=== PATIENT | male | born 1950 | race Caucasian/White ===

== ENCOUNTER 2017-06-11 10:00 | Emergency (ER) | payer MEDICARE, OTHER ==
[~2017-06-11] VITALS: Ht 182.9 cm; Wt 87.1 kg
[~2017-06-11 10:00] MED LIST: ACAR100T1 PO; CAPT25TA10 PO; GLIM2TAB PO; MECL-270 PO; METF1TAB4 PO
[2017-06-11 10:05] VITALS: BP 156/93
--- NOTE | 2017-06-11 10:09 | NUR ---
Patient ambulated to bed 06.
[2017-06-11] MEDS ORDERED: ASPIRIN 325 MG TAB PO ONE (10:10)
--- NOTE | 2017-06-11 10:14 | NUR ---
PT PRESENTS TO ER W/C/O CHEST PAIN SINCE LAST NOC. HX OF HTN, DM, HYPERLIPIDEMIA. . DENIES N/V/D; SKIN IS PINK/WARM/DRY; AAOX4 WITH EVEN AND STEADY GAIT; LUNGS CLEAR BL; HR EVEN AND REGULAR; PT DENIES ANY FEVER, CP, SOB, OR COUGH AT THIS TIME; PATIENT STATES PAIN OF 9/10 AT THIS TIME; PATIENT POSITIONED FOR COMFORT; HOB ELEVATED; BEDRAILS UP X2; BED DOWN. ALL MONITORS IN PLACED; ALL MONITORS IN PLACED;ER MD MADE AWARE OF PT STATUS.
--- NOTE | 2017-06-11 10:15 | NUR ---
Dr. Ross evaluating patient at bedside.
--- NOTE | 2017-06-11 10:17 | NUR ---
XRAY at bedside.
[2017-06-11 10:33] LABS: HEMATOCRIT 41.5 % (36-52); HEMOGLOBIN 13.7 g/dL (12.0-18.0); MEAN CORPUSCULAR HEMOGLOBIN 31 pg (27-31); MEAN CORPUSCULAR HGB CONC 33 g/dL (33-37); MEAN CORPUSCULAR VOLUME 94 fL (80-94); PLATELET COUNT (AUTO) 180 K/uL (140-450); RED BLOOD CELL COUNT(AUTO) 4.43 MIL/uL (4.20-6.10); RED CELL DISTRIBUTION WIDTH 12.3 % (11.6-13.7); WHITE BLOOD COUNT (AUTO) 6.4 K/uL (4.8-10.8)
[2017-06-11 10:45] LABS: ANION GAP 16.2 (8-16); CARBON DIOXIDE 21.2 mmol/L (21-32); CREATININE 1.2 mg/dL (0.7-1.3); POTASSIUM 4.4 mmol/L (3.5-5.1)
[2017-06-11 10:48] LABS: EOSINOPHILS % (MANUAL) 4 % (0-4); LYMPHOCYTES % (MANUAL) 41 % (20-46); MONOCYTES % (MANUAL) 4 % (5-12)
[2017-06-11 10:50] LABS: ALBUMIN 3.9 g/dL (3.4-5.0); TOTAL BILIRUBIN 0.6 mg/dL (0.0-1.0)
--- NOTE | 2017-06-11 10:54 | NUR ---
PT VERBALIZES RELIEF FROM CHEST PAIN FROM 9/10 TO 0/10;NO MOANING/FACIAL GRIMMACING NOTED;ALL MONITORS IN PLACED;WILL CONTINUE TO MONITOR PT.
--- NOTE | 2017-06-11 11:45 | NUR ---
pt lying on bed;daughter at bedside;no pain at this time;vss;will continue to monitor pt.
--- NOTE | 2017-06-11 12:21 | NUR ---
pt resting on bed;no acute distress noted;all monitors in placed;will continue to monitor pt.
[2017-06-11 13:19] VITALS: BP 124/76
--- NOTE | 2017-06-11 13:19 | NUR ---
Patient discharged with v/s stable. Written and verbal after care instructions given and explained. Patient verbalized understanding. Ambulatory with steady gait. All questions addressed prior to discharge. Advised to follow up with PMD.
== END 2017-06-11 13:19 | disposition home or self-care (01) ==
LOC: MED 10:00
DX: R07.89 Other chest pain (principal); E11.9 Type 2 diabetes mellitus without complications; I10 Essential (primary) hypertension; Z79.899 Other long term (current) drug therapy
CPT/HCPCS: 36415; 71010; 80053; 83880; 84484; 85025; 93005; 99285; Q0092

== ENCOUNTER 2019-06-01 11:03 | Emergency (ER) | payer MEDICARE, OTHER ==
[~2019-06-01] VITALS: Ht 188 cm; Wt 75.3 kg
[2019-06-01 11:10] VITALS: BP 149/78
--- NOTE | 2019-06-01 11:22 | NUR ---
68/M BIB DAUGHTER C/O GENERAILIZED WEAKNESS X1 DAY. MIDDLE BACK PAIN AT 8/10, DENIES TRUAMA OR INJURY. SANJANA LEGS & FEET PITTING EDEMA & BURNING SENSATION IN LEGS, AND PT REPORTS BEING SWEATY. SANJANA FEET PEDAL PULSE :FAINT. MEDHX:DM, HTN, GERD. PATIENT POSITIONED FOR COMFORT; SANJANA LEGS ELEVATED; BEDRAILS UP X1; BED DOWN. ER MD MADE AWARE OF PT STATUS.
[2019-06-01] MEDS ORDERED: KETOROLAC 30 MG/ML VIAL IVP ONE (11:40)
--- NOTE | 2019-06-01 11:41 | NUR ---
tech ed teacher at bedside.
[2019-06-01 12:02] LABS: BASOPHILS % (AUTO) 0.7 % (0.0-2.0); EOSINOPHILS # (AUTO) 0.2 K/uL (0-0.4); EOSINOPHILS % (AUTO) 4.9 % (0.0-4.0); HEMATOCRIT 36.5 % (36-52); HEMOGLOBIN 12.5 g/dL (12.0-18.0); LYMPHOCYTES # (AUTO) 1.9 K/uL (2.0-11.5); LYMPHOCYTES % (AUTO) 37.2 % (20.5-51.1); MEAN CORPUSCULAR HEMOGLOBIN 32 pg (27-31); MEAN CORPUSCULAR HGB CONC 34 g/dL (33-37); MONOCYTES # (AUTO) 0.4 K/uL (0.8-1.0); NEUTROPHILS # (AUTO) 2.5 K/uL (1.8-7.7); NEUTROPHILS % (AUTO) 49.2 % (42.2-75.2); PLATELET COUNT (AUTO) 161 K/uL (140-450); RED BLOOD CELL COUNT(AUTO) 3.97 MIL/uL (4.20-6.10); RED CELL DISTRIBUTION WIDTH 13.5 % (11.6-13.7)
[2019-06-01 12:38] LABS: ALBUMIN 3.7 g/dL (3.4-5.0); ANION GAP 13.5 (8-16); CARBON DIOXIDE 24.7 mmol/L (21-32); CREATININE 1.3 mg/dL (0.7-1.3); POTASSIUM 4.2 mmol/L (3.5-5.1); TOTAL BILIRUBIN 0.5 mg/dL (0.0-1.0)
--- NOTE | 2019-06-01 13:09 | NUR ---
Patient taken to CT scan via gurney by [employer].
--- NOTE | 2019-06-01 14:21 | NUR ---
Dr. Reeder re-evaluating patient at bedside.
[2019-06-01 14:39] VITALS: BP 142/77
[2019-06-01 15:05] LABS: CREATINE KINASE MB 2.4 ng/mL (0-3.6)
== END 2019-06-01 14:39 | disposition home or self-care (01) ==
LOC: MED 11:03
DX: M79.605 Pain in left leg (principal); M79.604 Pain in right leg; E11.9 Type 2 diabetes mellitus without complications; I10 Essential (primary) hypertension; Z79.899 Other long term (current) drug therapy
CPT/HCPCS: 36415; 71045; 74176; 80053; 81002; 82550; 82553; 82948; 83690; 83880; 84484; 85025; 93005; 96374; 99284; J1885; Q0092

== ENCOUNTER 2019-06-09 18:31 | Emergency (ER) | payer MEDICARE, OTHER ==
[~2019-06-09] VITALS: Ht 175.3 cm; Wt 87.7 kg
[2019-06-09 18:48] VITALS: BP 118/97
[2019-06-09] MEDS ORDERED: BENA20TA PO (18:59)
[2019-06-09] MEDS ORDERED: NACL 0.9% 1,000 ML IV ONE (19:10)
[2019-06-09] MEDS ORDERED: ASPIRIN 81 MG TAB.CHEW PO ONE (19:10)
--- NOTE | 2019-06-09 19:11 | NUR ---
C/O HEADACHE AND DIZZINESS. NAUSEA 1 HR AGO. CHEST PAIN 2 HOURS AGO SUBSIDED AFTER OMEPRAZOLE. RASH ON CHEST, BACK AND ARMS THAT WAS JUST NOTICED IN ROOM. DIZZINESS WHICH IS WORSE UPON STANDING. MEDHX: DM, HTN, GERD
--- NOTE | 2019-06-09 19:20 | NUR ---
REPORT GIVEN FROM UZIEL LIMA
--- NOTE | 2019-06-09 19:34 | NUR ---
PT C/O OF HEADACHE. PAIN LEVEL 8/10.
[2019-06-09 19:44] LABS: BASOPHILS % (AUTO) 0.5 % (0.0-2.0); EOSINOPHILS # (AUTO) 0.3 K/uL (0-0.4); EOSINOPHILS % (AUTO) 4.7 % (0.0-4.0); HEMATOCRIT 36.6 % (36-52); HEMOGLOBIN 12.6 g/dL (12.0-18.0); LYMPHOCYTES # (AUTO) 2.7 K/uL (2.0-11.5); LYMPHOCYTES % (AUTO) 40.4 % (20.5-51.1); MEAN CORPUSCULAR HEMOGLOBIN 32 pg (27-31); MEAN CORPUSCULAR HGB CONC 35 g/dL (33-37); MEAN CORPUSCULAR VOLUME 91.1 fL (80-94); MONOCYTES # (AUTO) 0.5 K/uL (0.8-1.0); MONOCYTES % (AUTO) 7.4 % (1.7-9.3); NEUTROPHILS # (AUTO) 3.1 K/uL (1.8-7.7); PLATELET COUNT (AUTO) 154 K/uL (140-450); RED BLOOD CELL COUNT(AUTO) 4.02 MIL/uL (4.20-6.10); WHITE BLOOD COUNT (AUTO) 6.7 K/uL (4.8-10.8)
[2019-06-09] MEDS ORDERED: KETOROLAC 30 MG/ML VIAL IVP ONE (19:50)
[2019-06-09 20:00] LABS: ANION GAP 15.6 (8-16); CARBON DIOXIDE 22.6 mmol/L (21-32); CREATININE 1.7 mg/dL (0.7-1.3); POTASSIUM 4.2 mmol/L (3.5-5.1)
[2019-06-09 20:03] LABS: PROTHROMBIN TIME 10.1 secs (10.8-13.4)
[2019-06-09 20:05] LABS: ALBUMIN 3.8 g/dL (3.4-5.0); TOTAL BILIRUBIN 0.5 mg/dL (0.0-1.0)
--- NOTE | 2019-06-09 20:20 | NUR ---
PT LEFT TO CT VIA RNEY
--- NOTE | 2019-06-09 21:16 | NUR ---
Patient discharged with v/s stable. Written and verbal after care instructions given and explained. Patient alert, oriented and verbalized understanding of instructions. Ambulatory with steady gait. All questions addressed prior to discharge. ID band removed. Patient advised to follow up with PMD. Rx of motrin and gabapentin was given. Patient educated on indication of medication including possible reaction and side effects. Opportunity to ask questions provided and answered.
[2019-06-09 21:17] VITALS: BP 145/80
== END 2019-06-09 21:16 | disposition home or self-care (01) ==
LOC: MED 18:31
DX: E11.40 Type 2 diabetes mellitus with diabetic neuropathy, unspecified (principal); I10 Essential (primary) hypertension; K21.9 Gastro-esophageal reflux disease without esophagitis; Z79.899 Other long term (current) drug therapy
CPT/HCPCS: 36415; 70450; 71045; 80053; 82948; 84484; 85025; 85610; 85730; 96361; 96374; 99284; J1885; J7030

== ENCOUNTER 2023-01-07 13:42 | Emergency (ER) | payer MEDICARE, OTHER ==
[~2023-01-07] VITALS: Ht 175.3 cm; Wt 86.2 kg
[~2023-01-07 13:42] MED LIST changes: -ACAR100T1 PO; +BENA20TA PO; -CAPT25TA10 PO; -MECL-270 PO
[2023-01-07 15:35] VITALS: BP 146/91
[2023-01-07] MEDS ORDERED: IBUPROFEN 600 MG TAB PO ONE (15:45)
[2023-01-07] MEDS ORDERED: IBUP-2213 PO (16:40)
--- NOTE | 2023-01-07 19:12 | NUR ---
PATIENT LEFT WITHOUR DISCHARGE PAPERWORK
== END 2023-01-07 19:12 | disposition home or self-care (01) ==
LOC: MED 13:42
DX: I80.02 Phlebitis and thrombophlebitis of superficial vessels of left lower extremity (principal); I10 Essential (primary) hypertension; E11.9 Type 2 diabetes mellitus without complications; K21.9 Gastro-esophageal reflux disease without esophagitis; Z79.4 Long term (current) use of insulin; Z79.899 Other long term (current) drug therapy
CPT/HCPCS: 93971; 99284; Q0092

== ENCOUNTER 2024-02-27 11:59 | Emergency (ER) | payer MEDICARE, OTHER ==
[~2024-02-27] VITALS: Ht 188 cm; Wt 81.2 kg
[~2024-02-27 11:59] MED LIST changes: +GLIM-24 PO; -GLIM2TAB PO; +IBUP-2213 PO
[2024-02-27 12:19] VITALS: BP 148/73; PULSE 71; RESP 15; TEMP 97.9; O2SAT 98
[2024-02-27 13:06] LABS: APPEARANCE,URINE CLEAR (CLEAR); BILIRUBIN,URINE NEGATIVE (NEGATIVE); BLOOD, URINE NEGATIVE (NEGATIVE); COLOR,URINE YELLOW (YELLOW); LEUKOCYTE ESTERASE ,URINE NEGATIVE (NEGATIVE); NITRITE, URINE NEGATIVE (NEGATIVE); PROTEIN,URINE NEGATIVE (NEGATIVE); UGLUCOSE 3+ (NEGATIVE); UROBILINOGEN,URINE 0.2 EU/dL (0.2 - 1)
[2024-02-27 13:16] LABS: ANION GAP 14.2 (8-16); CALCIUM 9.2 mg/dL (8.5-10.1); CARBON DIOXIDE 27.5 mmol/L (21-32); CHLORIDE 99 mmol/L (98-107); CREATININE 1.7 mg/dL (0.6-1.3); GLUCOSE 250 mg/dL (74-106); POTASSIUM 4.7 mmol/L (3.5-5.1); SODIUM SERUM 136 mmol/L (136-145); UREA NITROGEN, BLOOD 26 mg/dL (7-18)
[2024-02-27] MEDS: KETOROLAC 30 MG/ML VIAL IVP ONE (13:17)
[2024-02-27 13:21] LABS: ALBUMIN 3.9 g/dL (3.4-5.0); BILIRUBIN,DIRECT 0.1 mg/dL (0.0-0.3); TOTAL BILIRUBIN 0.5 mg/dL (0.0-1.0); TOTAL PROTEIN, SERUM 7.5 g/dL (6.4-8.2)
[2024-02-27 13:24] LABS: EOSINOPHILS # (AUTO) 0.2 K/uL (0-0.4); HEMATOCRIT 43.5 % (36-52)
[2024-02-27 13:28] LABS: BASOPHILS % (AUTO) 0.5 % (0.0-2.0); EOSINOPHILS % (AUTO) 2.9 % (0.0-4.0); LYMPHOCYTES # (AUTO) 2.7 K/uL (2.0-11.5); LYMPHOCYTES % (AUTO) 37.4 % (20.5-51.1); MEAN CORPUSCULAR HEMOGLOBIN 32 pg (27-31); MEAN CORPUSCULAR HGB CONC 34 g/dL (33-37); MEAN CORPUSCULAR VOLUME 92.7 fL (80-94); MONOCYTES # (AUTO) 0.6 K/uL (0.8-1.0); MONOCYTES % (AUTO) 7.6 % (1.7-9.3); NEUTROPHILS # (AUTO) 3.8 K/uL (1.8-7.7); NEUTROPHILS % (AUTO) 51.6 % (42.2-75.2); PLATELET COUNT (AUTO) 168 K/uL (140-450); RED CELL DISTRIBUTION WIDTH 13.9 % (11.6-13.7); WHITE BLOOD COUNT (AUTO) 7.4 K/uL (4.8-10.8)
[2024-02-27] MEDS ORDERED: ACET-10509 PO (15:25)
[2024-02-27] MEDS ORDERED: SIME80TA41 PO (15:25)
[2024-02-27] MEDS ORDERED: FAMO-90 PO (15:25)
[2024-02-27 15:31] VITALS: BP 126/73; PULSE 68; RESP 16; TEMP 97.9; O2SAT 97
== END 2024-02-27 15:32 | disposition home or self-care (01) ==
LOC: MED 11:59
DX: R10.32 Left lower quadrant pain (principal); R74.8 Abnormal levels of other serum enzymes; K21.9 Gastro-esophageal reflux disease without esophagitis; I12.9 Hypertensive chronic kidney disease with stage 1 through stage 4 chronic kidney disease, or unspecified chronic kidney disease; E11.22 Type 2 diabetes mellitus with diabetic chronic kidney disease; N18.9 Chronic kidney disease, unspecified; Z79.1 Long term (current) use of non-steroidal anti-inflammatories (NSAID); Z79.84 Long term (current) use of oral hypoglycemic drugs; Z79.899 Other long term (current) drug therapy
CPT/HCPCS: 36415; 80048; 80076; 81003; 83690; 85025; 99284